=== PATIENT | male | born 1965 ===

== ENCOUNTER 2024-11-13 08:57 | Outpatient (AMB) | payer MEDICAID, SELFPAY ==
--- NOTE | 2024-11-13 09:06 | MHC.OFFVIS ---
Intake Visit Reasons: hydrocele/BPH Intake Note: New Patient presents for initial visit for hydrocele and BPH Urology Medications: tamsulosin, finasteride Blood Thinner: none PVR: 41ml's Communication Skills Instructor Required: Yes Communication Skills Instructor Services: Communication Skills Instructor Present Communication Skills Instructor Name: Briana [id number] Accompanied by: Unknown Allergies No Known Allergies Allergy (Verified 11/13/24 09:49) Medication List - Last Reconciled 11/13/24 by MONET Royal- atenolol-chlorthalidone 50-25 mg 1 tab PO DAILY atorvastatin 40 mg PO DAILY captopril 25 mg PO BID finasteride 5 mg PO DAILY ketotifen fumarate 0.025%(0.035%) 1 drp ophthalmic (eye) BID loratadine 10 mg PO DAILY PRN pantoprazole 40 mg PO QAM rosuvastatin 40 mg PO BEDTIME tamsulosin 0.4 mg PO DAILY HPI Comments Details: Caitlin is a 59-year-old Central African-speaking male patient of Dr. Austin. He has a past medical history of hypertension, GERD, hypercholesteremia, BPH, and headaches. He presents to the office today as a new patient for left-sided hydrocele as well as ongoing lower urinary tract symptoms he has been experiencing. In discussion with the patient today reports having followed up with his PCP in discussing urological issues at which time urology referral was made for further assessment evaluation. He reports a longstanding history of a hydrocele and undergoing hydrocelectomy in [facility] over 10 years ago however feels hydrocele has reoccurred in his looking to undergo further surgical intervention. He also reports noting ongoing lower urinary tract symptoms over the last 2 years and was started on finasteride and Flomax with his PCP however has since stopped taking this medication as he did not know how long he should be taking them. He reports symptoms had somewhat improved when taking these medications. He reports noting feeling of incomplete bladder emptying and weak urinary stream. In assessment of the patient today small to moderate size left-sided hydrocele noted as well as epididymal head cyst. Otherwise no open areas, lesions, and or drainage noted within the area. GIOVANNA smooth and no suspicious nodules palpated. We discussed at length potential causes of lower urinary tract symptoms patient was experiencing as well as hydrocele. We discussed further intervention to include imaging. He otherwise denies incontinence, nocturia, hematuria, dysuria, foul smelling urine, flank pain, fever, and or chills. In office urinalysis results reviewed with the patient today. PVR 41 mLs. He otherwise offers no other issues or concerns at this time. Plan An ultrasound of the kidneys, bladder, and testicles will be performed to evaluate the patient's genitourinary symptoms, particularly regarding the potential for surgical intervention for his left sided recurring hydrocele. Blood work will assess his prostate health to determine the need for Finasteride. For immediate alleviation of his urinary retention symptoms, Tamsulosin restart is recommended until further diagnostic information becomes available. The benefits and potential risks were communicated, reinforcing the necessity of these examinations. Patient was informed and verbally consented to the use of an ambient scribe for clinic note documentation during this visit. Discussion Notes I discussed the likely diagnosis of a hydrocele and feeling of incomplete bladder emptying secondary to Benign Prostatic Hyperplasia with the patient. We spoke about the importance of obtaining imaging studies to further understand the underlying causes of his symptoms. The potential treatment includes resumption or commencement of Tamsulosin for urinary symptoms, while Finasteride use would depend on blood work results as well as imaging. The patient was informed about potential surgical intervention for his hydrocele following diagnostic confirmation. Risks, benefits, and alternative management approaches were addressed, with patient consent for proceeding as discussed. [facility] Medical History Tension type headache Benign prostatic hyperplasia Hypercholesterolemia GERD (gastroesophageal reflux disease) Essential hypertension Review of Systems Const All systems reviewed & are unremarkable except as noted in HPI and below Physical Exam Const General: cooperative, comfortable, no acute distress, well developed, alert and awake Orientation/consciousness: patient oriented x3 Limitations: language barrier HEENT Head: Yes normal to inspection, Yes normocephalic and Yes atraumatic Ears: hearing grossly normal bilaterally Eyes General: appearance normal, both eyes and all related structures Neck Neck: Yes normal visual inspection and Yes trachea midline Chest Chest palpation & inspection: normal inspection of the chest Resp Effort & Inspection: normal respiratory effort and able to speak in complete sentences Cardio Rate: regular rate GI Inspection: Yes normal to inspection Other: as per HPI General: Yes no CVA tenderness Back/Spine/Pelvis Back: no CVA tenderness Skin General skin exam: no rashes or lesions noted Neuro General: patient oriented x3 Extrem General: Yes normal to inspection Psych Appearance: grossly normal and well kempt Mental Status: mental status grossly normal Speech and movement: Normal speech and movement present and Clear speech present Affect: normal affect Attitude: cooperative Thought process: Normal thought process present Thought content: Normal thought content present Insight: Fair insight present (Psych) Judgement: Fair judgement present (Psych) Office Procedures Post Void Residual Post Residual Void Post Void Residual (PVR): 41 [id number] Void Residual by ultrasound Results AMB Urinalysis, Automated UA Leukoctes 0 Roseline/uL Last Edit by Britney Samuelsyoel on 11/13/24 09:24 UA Nitrite Last Edit by Britney Samuelsyoel on 11/13/24 09:24 UA Urobilinogen 0.2 mg/dL Last Edit by Britney Samuelsyoel on 11/13/24 09:24 UA Protein 15 mg/dL Last Edit by Britney Samuelsyoel on 11/13/24 09:24 UA pH 6.0 Last Edit by Britney Samuelsyoel on 11/13/24 09:24 UA Blood 10 Giles/uL Last Edit by Britney Samuelsyoel on 11/13/24 09:24 UA Specific [place] 1.025 Last Edit by AshutoshKiromicjovan Samuelsyoel on 11/13/24 09:24 UA Ketone Last Edit by Ashutoshdomingajovan Samuelsyoel on 11/13/24 09:24 UA Bilirubin 0 mg/dL Last Edit by Ashutoshlucho Abrilyoel on 11/13/24 09:24 UA Glucose 0 mg/dL Last Edit by AshutoshKiromicjovan Abrilyoel on 11/13/24 09:24 Results Reviewed Results Reviewed: Laboratory Last Values Urine pH (Auto) 6.0 11/13/24 09:08 Specific [place] (Auto) 1.025 11/13/24 09:08 Urine Protein (Auto) 15 mg/dL 11/13/24 09:08 Glucose (UA)(Auto) 0 mg/dL 11/13/24 09:08 Urine Blood (Auto) 10 Giles/uL 11/13/24 09:08 Urine Bilirubin (Auto) 0 mg/dL 11/13/24 09:08 Urine Urobilinogen (Auto) 0.2 mg/dL 11/13/24 09:08 Leukocyte Esterase (Auto) 0 Roseline/uL 11/13/24 09:08 Assessment & Plan Assessment & Plan (1) Weak urinary stream: Code(s): R39.12 - Poor urinary stream Category: Medical (2) Feeling of incomplete bladder emptying: Code(s): R39.14 - Feeling of incomplete bladder emptying Category: Medical (3) Hydrocele: Code(s): N43.3 - Hydrocele, unspecified Category: Medical Plan In office urinalysis results reviewed the patient today; as noted above. PVR 41 mL. We discussed at length potential causes of lower urinary tract symptoms patient was experiencing as well as hydrocele. We discussed further interventions and risks and benefits of these interventions. Will obtain scrotal ultrasound for further assessment evaluation. Will obtain retroperitoneal ultrasound for further assessment evaluation. Will attempt to obtain PSA from PCP. Will restart Flomax as discussed and prescribed. Follow-up in 1-3 months with imaging and PVR; or sooner with any issues, concerns, and or questions. Orders: Orders AMB Urinalysis Automated Today Z13.9 - Encounter for screening, unspecified Urine Cytology Today Z13.9 - Encounter for screening, unspecified AMB Post Void Residual by ultrasound Today N40.0 - Benign prostatic hyperplasia without lower urinary tract symptoms US retroperitoneal comp Today N43.3 - Hydrocele, unspecified, R39.12 - Poor urinary stream, R39.14 - Feeling of incomplete bladder emptying US scrotum Today N43.3 - Hydrocele, unspecified Patient Instructions: The patient had an opportunity to ask questions regarding the treatment plan. All questions were answered. Physical exam, labs, and imaging were discussed and reviewed in detail. As well as risks, benefits, and discussion of treatment choices. No major barriers to understanding were identified. The patient expressed understanding and agreement with the above treatment plan. The patient was made aware they should contact our office by phone for worsening of their current condition, the appearance of new symptoms, or with any questions or concerns. Compliance is encouraged with any medications and follow up testing that is ordered. It is a privilege to be allowed the opportunity to participate in? your urological care.? Again, if you have any questions or concerns If you have any questions or concerns please do not hesitate to contact me. The office is [phone]. This note is constructed using voice recognition software. While every effort has been made to ensure accuracy logistics solution manager errors may have been included. Yours sincerely, BRENDA Royal Coding Level of Care Code New Pt Level 4 (49464) Diagnoses Weak urinary stream R39.12 Feeling of incomplete bladder emptying R39.14 Hydrocele N43.3 CPT Codes Post Residual Void - PVR CPT Code: 62141-Yczu Void Residual by ultrasound ([id number]) Time Spent (min) 35
== END 2024-11-13 09:50 | disposition home or self-care (01) ==
LOC: HO.HUSH 08:58
PROVIDERS: PCP Internal Medicine; Visit Provider Nurse Practitioner Family
DX: R39.12 Poor urinary stream (principal); R39.14 Feeling of incomplete bladder emptying; N43.3 Hydrocele, unspecified; Z13.9 Encounter for screening, unspecified
CPT/HCPCS: 99204

== ENCOUNTER 2024-11-13 08:57 | Outpatient (REF) | payer MEDICAID, SELFPAY ==
[2024-11-13 17:08] LABS: Urine Cytology See Pathology rpt
== END 2024-11-13 08:58 | disposition home or self-care (01) ==
LOC: HO.LNP 08:57
PROVIDERS: PCP Internal Medicine; Visit Provider Nurse Practitioner Family
DX: R39.12 Poor urinary stream (principal); R39.14 Feeling of incomplete bladder emptying; N43.3 Hydrocele, unspecified
CPT/HCPCS: 51798; 81003; 88112; 99212

== ENCOUNTER 2025-05-28 14:12 | Outpatient (REF) | payer OTHER, SELFPAY ==
--- NOTE | ~2025-05-28 | US_ITS ---
EXAMINATION: US SCROTUM CLINICAL INFORMATION: Hydrocele, history of hydrocelectomy 10 years ago. 60-year-old male.. COMPARISON: None available. TECHNIQUE: A sonogram of the scrotum was performed assessing rodriguez-scale appearance and color Doppler flow. Spectral Doppler analysis of the arterial and venous flow were performed in the testes bilaterally. FINDINGS: RIGHT: Right testicle measures 5.4 x 2.6 x 4.1 cm, volume 31 mL. No focal testicular parenchymal lesions are visualized. Spectral Doppler analysis of the arterial and venous flow is normal in the right testis. Right epididymal head is normal in size. There is a small right hydrocele. There is no varicocele. Right epididymal Doppler flow is normal. LEFT: Left testicle measures 5.0 x 2.3 x 3.9 cm, volume 24 mL. No focal testicular parenchymal lesions are visualized. Spectral Doppler analysis of the arterial and venous flow is normal in the left testis. Left epididymal head is normal in size. There is a moderate sized left hydrocele. There is no varicocele. Left epididymal Doppler flow is normal. US/US scrotum IMPRESSION: 1. Normal testicles and epididymides. 2. Small right and moderate left hydroceles. Electronically signed by: Gerald Astorga MD 05/28/2025 03:28 PM EDT
--- NOTE | ~2025-05-28 | US_ITS ---
EXAMINATION: US RETROPERITONEAL COMPLETE (RENAL) CLINICAL INFORMATION: Poor urinary stream. COMPARISON: None available. TECHNIQUE: Real-time imaging of the kidneys and bladder. FINDINGS: RIGHT KIDNEY: 12.3 x 5.0 x 5.7 cm (SAG x AP x TRV). The kidney is normal in size, contour, and echogenicity. Renal cortical thickness is normal. No calculi or focal parenchymal lesions. No hydronephrosis. LEFT KIDNEY: 11.7 x 6.2 x 3.9 cm (SAG x AP x TRV). The kidney is normal in size, contour, and echogenicity. Renal cortical thickness is normal. No calculi or focal parenchymal lesions. No hydronephrosis. BLADDER: Well distended and normal. Bilateral ureteral jets are demonstrated. Prevoid bladder volume is 430 mL. Postvoid bladder volume is 62 mL. Prostate volume is estimated at 24 mL. US/US retroperitoneal comp IMPRESSION: 1. Normal kidneys and urinary bladder. 2. Postvoid residual of 62 mL. Electronically signed by: Gerald Astorga MD 05/28/2025 03:30 PM EDT
--- OUTSIDE RECORDS SUMMARY | 2025-05-28 16:46 | XMS_ITS | Encounter Summary ---
Author Organization [facility] Address [address] [place] [address] Care Team Providers Care Air Conditioning Engineer Name Role Phone Child, Jarrell SOLORZANO Primary Care Provider [phone] Encounter Details Date Type Department Care Team ([facility] Contact Info) Description 04/25/2025 Telephone Gastroenterology - [place] [address] [place] [id number] Pola Rdz MD [address] [place] [address] Social History Tobacco Use Types Packs/Day Years Used Date Smoking Tobacco: Never Assessed Interpersonal Safety Answer Date Record ed Physical Abuse Unrecognized value 04/26/2025 Verbal Abuse Unrecognized value 04/26/2025 Sex and Gender Information Value Date Recorded Sex Assigned at Male 11/03/2024 3:51 PM EDT Legal Sex Male 8:42 PM EST Gender Identity Male 11/03/2024 3:51 PM EDT Sexual Orientation Straight 11/03/2024 3: 51 PM EDT documented as of this encounter Progress Notes * Enedelia Cantu - 04/25/2025 11:18 AM EDT PT JUST GOT [employer] INSURANCE OF THIS MONTH, PT SCHEDULED FOR PROCEDURE ON 04/26 documented in this encounter Plan of Treatment Upcoming Encounters Date Type Department Care Team (Late st Contact Info) Description 10/12/2025 3:00 PM EST Office Visit Gastroenterology - [place] [address] [facility] [address] [place] [phone] Charlotte Crowe, HASEEB [address] [facility] [address] [place] [address] documented as of this encounter Visit Diagnoses Not on filedocumented in this encounter Care Teams Air Conditioning Engineer Relationship Specialty Start Date End Date Child, RASHAD Vieyra [address] [place] [address] 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
--- OUTSIDE RECORDS SUMMARY | 2025-05-28 16:46 | XMS_ITS | Clinical Summary ---
Author Organization [facility] Address [address] [place] [address] Care Team Providers Care Blunger Name Role Phone Camilo Austin MD Primary Care Provider Source Comments PLEASE NOTE, if this patient is a minor, it may be UNLAWFUL to discuss sensitive information that is contained in these records (such as FAMILY PLANNING, MENTAL HEALTH or SUBSTANCE ABUSE) with the minor patient's parent or other person without the patient's specific authorization.[facility] Allergies No known active allergies Medications acetaminophen (TYLENOL) 500 mg tablet Take 1 Tablet by mouth every 6 (six) hours as needed for pain 30 Tablet 1 4 Active pantoprazole (PROTONIX) 40 mg EC tablet Take 1 Tablet by mouth every morning before breakfast 90 Tablet 1 4 Active captopriL (CAPOTEN) 25 mg tablet Take 1 Tablet by mouth 2 (two) times daily 180 Tablet 1 4 Active atenoloL-chlorth alidone (TENORETIC) 50-25 mg per tablet Take 1 Tablet by mouth once daily 90 Tablet 1 4 Active rosuvastatin (CRESTOR) 40 mg tablet Take 1 Tablet by mouth nightly at bedtime 90 Tablet 1 4 Active atorvastatin (LIPITOR) 40 mg tablet TAKE 1 TABLET BY MOUTH EVERY DAY 90 Tablet 1 4 Active ketotifen (ZADITOR) 0.025 % (0.035 %) ophthalmic solutionIndicati ons:Itch of left eye,Discomfort of left eye Place 1 Drop into the left eye 2 (two) times daily 10 mL 2 5 Active loratadine (CLARITIN) 10 mg tabletIndication s:Itch of left eye,Discomfort of left eye Take 1 Tablet by mouth once daily as needed for allergies 90 Tablet 5 Active tamsulosin (FLOMAX) 0.4 mg 24 hr capsuleIndicatio ns:Benign prostatic hyperplasia with weak urinary stream Take 1 Capsule by mouth once daily 90 Capsule 3 5 Active finasteride (PROSCAR) 5 mg tabletIndication s:Benign prostatic hyperplasia with weak urinary stream Take 1 Tablet by mouth once daily 90 Tablet 3 5 Active Active Problems Problem Noted Date Diagnosed Date Tension-type headaches 03/24/2024 Benign prostatic hyperplasia with weak urinary s tream 12/17/2023 Hypercholesterolemia 04/02/2023 Essential hypertension 11/13/2022 GERD (gastroesophageal reflux disease) 3 Family History Medical History Relation Name Comments Colon Cancer Father Heart Problems Mother Stroke Mother Relation Name Status Comments Father Mother Social History Tobacco Use Types Packs/Day Years Used Date Smoking Tobacco: Never Smokeless Tobacco: Never Tobacco Cessation:Counseling Given: Not Answered Alcohol Use Standard Drinks/Week Comments Never 0 (1 standard drink = 0.6 oz pur e alcohol) Social Connections Answer Date Recorded Connectedness 0 05/05/2024 Financial Resource Strain Answer Date R ecorded Financial Resource Strain 0 2021 Stress Answer Date Recorded Stress 0 07/24/2022 Physical Activity Answer Date Recorded Physical Activity 0 07/24/2022 Food Insecurity Answer Date Recorded Food 0 05/18/2024 Transportation Needs Answer Date Record ed Transportation 0 07/24/2022 Housing Stability Answer Date Recorded Housing 0 07/24/2022 Safety and Environment Answer Date Ari rded Safety 0 07/24/2022 Utilities Answer Date Recorded Utilities 0 07/24/2022 Employment Answer Date Recorded Stress 0 05/05/2024 Sex and Gender Information Value Date Recorded Sex Assigned at Male 11/13/2022 8:32 AM PDT Legal Sex Male 1:49 PM PST Gender Identity Male 11/13/2022 8:32 AM PDT Sexual Orientation Straight 11/13/2022 8: 32 AM PDT Last Filed Vital Signs Vital Sign Reading Time Taken Comments Blood Pressure 175/99 09/15/2024 9:01 AM EST Pulse 69 09/15/2024 9:01 AM EST Temperature 36.6 C (97.9 F) 09/15/2024 9:01 AM EST Respiratory Rate 16 09/15/2024 9:01 AM EST Oxygen Saturation 98% 05/14/2023 9:11 AM EDT Inhaled Oxygen Concentration - - Weight 78.5 kg (173 lb) 09/15/2024 9:01 AM EST Height 163 cm (5' 4.17 ) 09/15/2024 9:01 AM EST Body Mass Index 29.54 09/15/2024 9:01 AM EST Plan of Treatment Health Maintenance Due Date Last Done Comments Imm-DTaP/Tdap/Td (1 - Tdap) 1982 CT Colonography 02/25/2008 FIT/gFOBT 02/25/2008 Fecal DNA 02/25/2008 Flexible Sigmoidoscopy 02/25/2008 Imm-Pneumococcal 50+ (1 of 1 - PCV) 2013 Imm-Zoster, Recombinant (1 of 2) 2013 Alcohol and Drug Screen 08/23/2024 03/24/20, 11/13/2022, 11/13/2022 Depression Annual Screen 08/23/2024 03/24/2024, 10/22 Annual Wellness (Adult): Ind icated (All Coverage) 12/16/2024 12/17/2023, 11/13/2022 Anxiety Screening 03/24/2025 03/24/2024 Lipid Screening 03/24/2025 03/24/2024, 08/09/2023, 11/13/2022 [id number] ( - season) 2025 Imm-Influenza (#1) 2025 Tobacco Screening 09/15/2025 09/15/2024 Diabetes Screening 11/13/2025 11/13/2022, 11/13/2022 Colonoscopy 05/26/2034 05/26/2024, 05/26/2024 Colorectal Cancer Screening 05/26/2034 HIV Screening Completed 11/13/2022 Hepatitis C Screening Completed 11/13/2022 Procedures Procedure Name Priority Date/Time Associated Diagnosis Comments UPPER GI ENDOSCOPY (EGD) SCANNED DOCUMENT 04/26/2025 3:00 AM EDT IMAGING SCANNED DOCUMENT 04/03/2025 3:00 AM EDT HISTORIC COLONOSCOPY 05/26/2024 3:00 AM EDT LIPIDS W RFLX TO DIRECT LDL Routine 03/24/2024 3:41 PM EDT Hypercholesterolemia HIV 1/2 AG & AB W/RFLX (4TH GEN) Routine 11/13/2022 11:13 AM EDT Health maintenance examination Screening for viral disease HEPATITIS C AB W/RFLX HCV RNA, QT, RT PCR Routine 11/13/2022 11:13 AM EDT Health maintenance examination Screening for viral disease COMPREHENSIVE METABOLIC PANEL Routine 11/13/2022 11:13 AM EDT Health maintenance examination Essential (primary) hypertension from Last 3 Months or Most Recently Relevant to Health Maintenance Results * UPPER GI ENDOSCOPY (EGD) SCANNED DOCUMENT (04/26/2025 3:00 AM EDT) 04/26/2025 3:[address] [facility] PA-C SCAN PROCEDURES Final Result * IMAGING SCANNED DOCUMENT (04/03/2025 3:00 AM EDT) 04/03/2025 3:00 AM EDT [facility] PA-C SCAN IMAGING Final Result * HISTORIC COLONOSCOPY (05/26/2024 3:00 AM EDT) 05/26/2024 3:00 AM EDT Camilo Austin MD PROCEDURES Final Result * (ABNORMAL) LIPIDS W RFLX TO DIRECT LDL (03/24/2024 3:41 PM EDT) CHOLESTEROL, TOTAL 244(H) <200 mg/dL [facility] HDL CHOLESTEROL 48 > OR = 40 mg/dL [facility] TRIGLYCERIDES 575(H) <150 mg/dL [facility] Comment: If a non-fasting specimen was collected, consider repeat triglyceride testing on a fasting specimen if clinically indicated. Nikhil et al. J. of Clin. Lipidol. 2015;9:129-169. There is increased risk of pancreatitis when the triglyceride concentration is very high (> or = 500 mg/dL, especially if > or = 1000 mg/dL). Nikihl et al. J. of Clin. Lipidol. 2015;9:129-169. LDL-CHOLESTEROL See Note [facility] [employer] Comment: LDL cholesterol not calculated. Triglyceride levels greater than 400 mg/dL invalidate calculated LDL results. Reference range: <100 Desirable range <100 mg/dL for primary prevention; <70 mg/dL for patients with CHD or diabetic patients with > or = 2 CHD risk factors. LDL-C is now calculated using the Peter-Kadi calculation, which is a validated novel method providing better accuracy than the Friedewald equation in the estimation of LDL-C. Peter SS et al. BRENDEN. 2013;310(19): 8262-4486 (http://education.WebPT/faq/NKO015) CHOL/HDLC RATIO 5.1(H) <5.0 (calc) [facility] NON-HDL CHOLESTEROL 196(H) <130 mg/dL (calc) [facility] Comment: For patients with diabetes plus 1 major ASCVD risk factor, treating to a non-HDL-C goal of <100 mg/dL (LDL-C of <70 mg/dL) is considered a therapeutic option. Blood Blood / Unknown 03/24/2024 3 :41 PM EDT 03/24/2024 3:42 PM EDT Narrative [facility] - 03/27/2024 10:56 AM EDT FASTING:NO us Camilo Austin MD LAB - BLOOD DRAW Final Resul t [facility] [address] [place] [id number], [facility] [address] [place] [phone] * HEPATITIS C AB W/RFLX HCV RNA, QT, RT PCR (11/13/2022 11:13 AM EDT) HEPATITIS C ANTIBODY NON-REACT MOLLY NON-REACT MOLLY [facility] SIGNAL TO CUT-OFF 0.05 <1.00 [facility] Comment: HCV antibody was non-reactive. There is no laboratory evidence of HCV infection. In most cases, no further action is required. However, if recent HCV exposure is suspected, a test for HCV RNA (test code 02967) is suggested. For additional information please refer to http://seedtag.Rakuten/faq/EYW90c3 (This link is being provided for informational/ educational purposes only.) Blood Blood / Unknown 11/13/2022 1 1:13 AM EDT 11/13/2022 11:14 AM EDT Narrative [facility] - 11/18/2022 2:12 PM EDT FASTING:NO Brissa Ford NP LAB - BLOOD DRAW Edited Result - Final [facility] [address] [place] [id number], [facility] [address] [phone] * HIV 1/2 AG & AB W/RFLX (4TH GEN) (11/13/2022 11:13 AM EDT) HIV AG/AB, 4TH GEN NON-REAC TIVE NON-REAC TIVE [facility] Comment: HIV-1 antigen and HIV-1/HIV-2 antibodies were not detected. There is no laboratory evidence of HIV infection. PLEASE NOTE: This information has been disclosed to you from records whose confidentiality may be protected by state law. If your state requires such protection, then the state law prohibits you from making any further disclosure of the information without the specific written consent of the person to whom it pertains, or as otherwise permitted by law. A general authorization for the release of medical or other information is NOT sufficient for this purpose. For additional information please refer to http://seedtag.Global New Media.Medigo/faq/LXB021 (This link is being provided for informational/ educational purposes only.) The performance of this assay has not been clinically validated in patients less than 2 years old. Blood Blood / Unknown 11/13/2022 1 1:13 AM EDT 11/13/2022 11:14 AM EDT Narrative [facility] [facility] - 11/18/2022 2:12 PM EDT FASTING:NO Brissa Ford NP LAB - BLOOD DRAW Final Result [facility] [address] [address], [facility] [address] [place] [address] * (ABNORMAL) CMP (11/13/2022 11:13 AM EDT) GLUCOSE 97 65 - 139 mg/dL [facility] Comment: Non-fasting reference interval UREA NITROGEN (BUN) 19 7 - 25 mg/dL [facility] CREATININE (blood) 0.91 0.70 - 1.30 mg/dL [facility] EGFR 97 > OR = 60 mL/min/1 .73m2 [facility] Comment: The eGFR is based on the CKD-EPI 2020 equation. To calculate the new eGFR from a previous Creatinine or Cystatin C result, go to https://www.kidney.org/professionals/ kdoqi/gfr%5Fcalculator BUN/CREATININE RATIO NOT APPLICABLE 6 - 22 [facility] SODIUM 139 135 - 146 mmol/L [facility] POTASSIUM 4.3 3.5 - 5.3 mmol/L [facility] CHLORIDE 104 98 - 110 mmol/L [facility] CARBON DIOXIDE 28 20 - 32 mmol/L [facility] CALCIUM 11.6(H) 8.6 - 10.3 mg/dL [facility] PROTEIN, TOTAL 7.2 6.1 - 8.1 g/dL [facility] ALBUMIN 4.8 3.6 - 5.1 g/dL [facility] GLOBULIN 2.4 1.9 - 3.7 g/dL (calc) [facility] ALBUMIN/GLOBUL IN RATIO 2.0 1.0 - 2.5 (calc) [facility] BILIRUBIN, TOTAL 0.9 0.2 - 1.2 mg/dL [facility] ALKALINE PHOSPHATASE 76 35 - 144 U/L [facility] AST 22 10 - 35 U/L [facility] ALT 33 9 - 46 U/L [facility] Blood Blood / Unknown 11/13/2022 1 1:13 AM EDT 11/13/2022 11:14 AM EDT Narrative [facility] - 11/18/2022 2:12 PM EDT FASTING:NO Brissa Ford LOCK AND DAM OPERATOR LAB - BLOOD DRAW Edited Result - Final [facility] [address] [address], [facility] [address] [place] [address] from Last 3 Months or Most Recently Relevant to Health Maintenance Insurance [id number] Care Teams Blunger Relationship Specialty Start Date End Date Camilo Austin MD [address] [place] [address] PCP - General Internal Medicine 05/03/23
--- OUTSIDE RECORDS SUMMARY | 2025-05-28 16:46 | XMS_ITS | Clinical Summary ---
Author Organization [facility] Address [address] [place] [address] Care Team Providers Care Kier Operator Name Role Phone ChildJarrell Primary Care Provider [phone] Allergies No known active allergies Medications atenoloL-chlortha lidone (TENORETIC) 50-25 mg per tablet Take 1 tablet by mouth 1 (one) time each day. Active captopriL (CAPOTEN) 25 mg tablet Take 1 tablet (25 mg total) by mouth 3 (three) times a day. Active pantoprazole (PROTONIX) 40 mg EC tablet Take 1 tablet (40 mg total) by mouth 1 (one) time each day. Active rosuvastatin (CRESTOR) 40 mg tablet 1 (one) time each day. 4 Active acetaminophen (TYLENOL) 500 mg tablet Take 1 tablet (500 mg total) by mouth every 6 hours as needed. 4 Active atorvastatin (LIPITOR) 40 mg tablet Take 1 tablet (40 mg total) by mouth daily. 4 Active pantoprazole (PROTONIX) 40 mg EC tablet Take 1 tablet (40 mg total) by mouth 2 (two) times a day. Take on empty stomach, wait 30 mins and then eat to activate the medication- before breakfast and supper 60 each 11 5 Active famotidine (Pepcid) 20 mg tablet Take 1 tablet (20 mg total) by mouth 2 (two) times a day if needed for heartburn. Take as needed especially at bedtime 60 each 11 5 026 Active Additional Information Patient not taking.Reported on 04/26/2025 valsartan (DIOVAN) 160 mg tablet Take 1 tablet (160 mg total) by mouth 1 (one) time each day. Takes 1/2 pill / day . Pt unsure of dose Active bismuth subsalicylate 525 mg/15 mL suspension Take 15 mL by mouth 4 (four) times a day. 840 mL Active metroNIDAZOLE (FLAGYL) 250 mg tablet Take 1 tablet (250 mg total) by mouth 4 (four) times a day for 14 days. Do not use mouth wash or consume alcohol until 48 hours after last dose 56 tablet 5 025 Active tetracycline (ACHROMYCIN,SUMYC IN) 500 mg capsule Take 1 capsule (500 mg total) by mouth 4 (four) times a day for 14 days. 56 capsule 5 025 Active Encounters Date Type Department Care Team Description 05/27/2025 Results Follow-Up Gastroenterology - [place] 175 [facility] [address] [phone] Pola Rdz MD 04/26/2025 2:04 PM EDT Anesthesia Event [facility] [address] [place] [address] Nestor Granger MD 04/26/2025 12:02 PM EDT - 04/26/2025 11:59 PM EDT Hospital Encounter [facility] [address] [place] [address] Pola Rdz MD Steele, Matthew G, FRONT DESK TEAM MEMBER Dyspepsia; Epigastric pain Discharge Disposition: Home or Self Care 04/25/2025 Telephone Gastroenterology - [place] 175 [facility] [address] [phone] Pola Rdz MD 04/03/2025 9:58 AM EDT - 04/03/2025 11:59 PM EDT Hospital Encounter [facility] [address] [place] [address] Dyspepsia Discharge Disposition: Home or Self Care from Last 3 Months Surgical History Surgery Date Site/Laterality Comments COLONOSCOPY N/A Medical History Medical History Date Comments Hypertension GERD (gastroesophageal reflux disease) Family History Relation Name Status Comments Father colon cancer Social History Tobacco Use Types Packs/Day Years Used Date Smoking Tobacco: Never Smokeless Tobacco: Never Tobacco Cessation:Counseling Given: Not Answered Alcohol Use Standard Drinks/Week Comments Not Currently 0 (1 standard drink = 0.6 oz pur e alcohol) Interpersonal Safety Answer Date Record ed Physical Abuse Unrecognized value 04/26/2025 Verbal Abuse Unrecognized value 04/26/2025 Sex and Gender Information Value Date Recorded Sex Assigned at Male 11/03/2024 3:51 PM EDT Legal Sex Male 8:42 PM EST Gender Identity Male 11/03/2024 3:51 PM EDT Sexual Orientation Straight 11/03/2024 3: 51 PM EDT Obstetrics History Last Filed Vital Signs Vital Sign Reading Time Taken Comments Blood Pressure 163/99 04/26/2025 2:46 PM EDT pt aware to take bp meds due today as prescribed Pulse 71 04/26/2025 2:46 PM EDT Temperature 36.1 C (97 F) 04/26/2025 2:02 PM EDT Respiratory Rate 15 04/26/2025 2:46 PM EDT Oxygen Saturation 98% 04/26/2025 2:4 6 PM EDT Inhaled Oxygen Concentration - - Weight 76 kg (167 lb 8.8 oz) 04/26/2025 2:02 PM EDT Height 168 cm (5' 6.14 ) 04/26/2025 2:0 2 PM EDT Body Mass Index 26.93 04/26/2025 2:02 PM EDT Plan of Treatment Upcoming Encounters Date Type Department Care Team (Late st Contact Info) Description 10/12/2025 3:00 PM EST Office Visit Gastroenterology - [place] 175 [facility] 175 [facility] [address] [place] [address] Charlotte Crowe NP 175 [facility] [address] [place] [address] Health Maintenance Due Date Last Done Comments DTaP,Tdap,and Td Vaccines (1 - Tdap) 1982 Pneumococcal Vaccine: 50+ Ye ars (1 of 1 - PCV) 2013 Zoster Vaccines (1 of 2) 2013 HIV Screening 09/17/2023 Social Influencers of Health Screening 09/17/2023 Depression Screening 08/23/2024 Hypertension/CHF/CAD Annual BMP Blood Test 10/13/2024 11/13/2022 COVID-19 Vaccine (1 - 2023-2 5 season) 2025 Influenza Vaccine (#1) 2025 Cholesterol Screening (Lipid Panel) 03/24/2029 03/24/2024 Colorectal Cancer Screening: Colonoscopy 05/26/2029 05/26/2024 RSV Immunization Adult Patie nts (1 - 1-dose 75+ series) 2038 Hepatitis C Screening Completed 11/13/2022 HIB Vaccines Aged Out No longer eligi ble based on patient's age to complete this topic HPV Vaccines Aged Out No longer eligi ble based on patient's age to complete this topic Hepatitis A Vaccines Aged Out No long er eligible based on patient's age to complete this topic Hepatitis B Vaccines Aged Out No long er eligible based on patient's age to complete this topic IPV Vaccines Aged Out No longer eligi ble based on patient's age to complete this topic MMR Vaccines Aged Out No longer eligi ble based on patient's age to complete this topic Meningococcal ACWY Vaccine Aged Out N o longer eligible based on patient's age to complete this topic Meningococcal B Vaccine Aged Out No l onger eligible based on patient's age to complete this topic RSV Immunization Patients Un ngozi 20 months Aged Out No longer eligible b ased on patient's age to complete this topic Varicella Vaccines Aged Out No longer eligible based on patient's age to complete this topic Procedures Procedure Name Priority Date/Time Associated Diagnosis Comments EGD Routine 04/26/2025 2:25 PM EDT Dyspepsia Epigastric pain TISSUE EXAM Routine 04/26/2025 2:10 PM EDT Dyspepsia Epigastric pain XR UGI W AIR CONTRAST Routine 04/03/2025 10:34 AM EDT Dyspepsia HM COLONOSCOPY Routine 05/26/2024 from Last 3 Months or Most Recently Relevant to Health Maintenance Results * EGD Anesthesia - MAC; [facility] (04/26/2025 2:25 PM EDT) Anatomical Region Laterality Modality Endoscopy 04/26/2025 2:04 PM EDT Impressions 04/26/2025 2:28 PM EDT - Normal examined duodenum. - Gastritis. Biopsied. 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 Complete removal was accomplished. Clips (MR conditional) were placed. 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 - Small hiatal hernia. - LA Grade B reflux esophagitis with no bleeding. - GERD, as evident by free flow of gastric contents into the esophagus. - Mucosal resection was performed. Resection and retrieval were complete. Recommendation: - Discharge patient to home. - Await pathology results. - Follow an antireflux regimen. - Use a proton pump inhibitor PO daily. Narrative 04/26/2025 2:28 PM EDT [facility] Patient Name: Caitlin Ortiz Procedure Date: 04/26/2025 2:04 PM Date of : 1965 Age: 60 Gender: Male Note Status: Finalized Attending MD: Pola Rdz MD, Procedure Date No Time: 04/26/2025 Procedure: Upper GI endoscopy Indications: Esophageal reflux symptoms that persist despite appropriate therapy, New-onset upper abdominal symptoms in patient older than 50 years Providers: Pola Rdz MD Referring MD: Pola Rdz MD Medicines: Monitored Anesthesia Care Complications: No immediate complications. Estimated blood loss: Minimal. Estimated Blood Loss: Estimated blood loss was minimal. Procedure: Pre-Anesthesia Assessment: - Prior to the procedure, a History and Physical was performed, and patient medications and allergies were reviewed. The patient is competent. The risks and benefits of the procedure and the sedation options and risks were discussed with the patient. All questions were answered and informed consent was obtained. Patient identification and proposed procedure were verified by the physician, the nurse, the real estate professor and the batch room technician in the pre-procedure area in the endoscopy suite. Mental Status Examination: alert and oriented. Airway Examination: normal oropharyngeal airway and neck mobility. Respiratory Examination: clear to auscultation. CV Examination: normal. Prophylactic Antibiotics: The patient does not require prophylactic antibiotics. Prior Anticoagulants: The patient has taken no anticoagulant or antiplatelet agents. ASA Grade Assessment: III - A patient with severe systemic disease. After reviewing the risks and benefits, the patient was deemed in satisfactory condition to undergo the procedure. The anesthesia plan was to use monitored anesthesia care (MAC). Immediately prior to administration of medications, the patient was re-assessed for adequacy to receive sedatives. The heart rate, respiratory rate, oxygen saturations, blood pressure, adequacy of pulmonary ventilation, and response to care were monitored throughout the procedure. The physical status of the patient was re-assessed after the procedure. After obtaining informed consent, the endoscope was passed under direct vision. Throughout the procedure, the patient's blood pressure, pulse, and oxygen saturations were monitored continuously. The Endoscope was introduced through the mouth, and advanced to the second part of duodenum. The upper GI endoscopy was accomplished without difficulty. The patient tolerated the procedure well. Findings: The examined duodenum was normal. Diffuse moderate inflammation characterized by congestion (edema) and erythema was found in the gastric body and in the gastric antrum. Biopsies were taken with a cold forceps for histology. Estimated blood loss was minimal. A small, submucosal mass with no bleeding and no stigmata of recent bleeding was found in the gastric antrum. Preparations were made for mucosal resection. Band ligator and snare mucosal resection was performed. Resection and retrieval were complete. To prevent bleeding after the polypectomy, two hemostatic clips were successfully placed (MR conditional). 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 There was no bleeding at the end of the procedure. Estimated blood loss was minimal. A small hiatal hernia was present. LA Grade B (one or more mucosal breaks greater than 5 mm, not extending between the tops of two mucosal folds) esophagitis with no bleeding was found at the gastroesophageal junction. Gastroesophageal reflux is evident by free flow of gastric contents in the lower third of the esophagus. Procedure Code(s): --- Professional --- 47424, Esophagogastroduodenoscopy, flexible, transoral; with endoscopic mucosal resection 27209, 59, Esophagogastroduodenoscopy, flexible, transoral; with biopsy, single or multiple Diagnosis Code(s): --- Professional --- K29.70, Gastritis, unspecified, without bleeding K44.9, Diaphragmatic hernia without obstruction or gangrene K21.00, Gastro-esophageal reflux disease with esophagitis, without bleeding R19.8, Other specified symptoms and signs involving the digestive system and abdomen CPT copyright 2020 [employer]. All rights reserved. The codes documented in this report are preliminary and upon lan specialist review may be revised to meet current compliance requirements. Pola Rdz MD 04/26/2025 2:28:29 PM This report has been signed electronically.Pola Rdz MD Number of Addenda: 0 Note Initiated On: 04/26/2025 2:04 PM Scope In: Scope Out: Endoscopy Department at [facility] - [address] [place] [id number] Procedure Note Pola Rdz MD - 04/26/2025 [facility] Patient Name: Caitlin Ortiz Procedure Date: 04/26/2025 2:04 PM Date of : 1965 Age: 60 Gender: Male Note Status: Finalized Attending MD: Pola Rdz MD, Procedure Date No Time: 04/26/2025 Procedure: Upper GI endoscopy Indications: Esophageal reflux symptoms that persist despite appropriate therapy, New-onset upper abdominal symptoms in patient older than 50 years Providers: Pola Rdz MD Referring MD: Pola Rdz MD Medicines: Monitored Anesthesia Care Complications: No immediate complications. Estimated blood loss: Minimal. Estimated Blood Loss: Estimated blood loss was minimal. Procedure: Pre-Anesthesia Assessment: - Prior to the procedure, a History and Physicalwas performed, and patient medications and allergieswere reviewed. The patient is competent. The risks and benefits of the procedure and the sedation optionsand risks were discussed with the patient. Allquestions were answered and informed consent was obtained. Patient identification and proposed procedure were verified by the physician, the nurse, theanesthetist and the batch room technician in the pre-procedure area in the endoscopy suite. Mental Status Examination: alertand oriented. Airway Examination: normal oropharyngeal airway and neck mobility. Respiratory Examination: clear to auscultation. CV Examination: normal. Prophylactic Antibiotics: The patient does notrequire prophylactic antibiotics. Prior Anticoagulants: The patient has taken no anticoagulant or antiplatelet agents. ASA Grade Assessment: III - A patient with severe systemic disease. After reviewing the risksand benefits, the patient was deemed in satisfactory condition to undergo the procedure. The anesthesia plan was to use monitored anesthesia care (MAC). Immediately prior to administration of medications, the patient was re-assessed for adequacy to receive sedatives. The heart rate, respiratory rate, oxygen saturations, blood pressure, adequacy of pulmonary ventilation, and response to care were monitored throughout the procedure. The physical status ofthe patient was re-assessed after the procedure. After obtaining informed consent, the endoscope was passed under direct vision. Throughout theprocedure, the patient's blood pressure, pulse, and oxygen saturations were monitored continuously. TheEndoscope was introduced through the mouth, and advanced tothe second part of duodenum. The upper GI endoscopy was accomplished without difficulty. The patienttolerated the procedure well. Findings: The examined duodenum was normal. Diffuse moderate inflammation characterized by congestion (edema) and erythema was found in the gastric body and in the gastric antrum. Biopsieswere taken with a cold forceps for histology. Estimated blood loss was minimal. A small, submucosal mass with no bleeding and no stigmata of recent bleeding was found in thegastric antrum. Preparations were made for mucosalresection. Band ligator and snare mucosal resection was performed. 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 There was nobleeding at the end of the procedure. Estimated blood losswas minimal. A small hiatal hernia was present. LA Grade B (one or more mucosal breaks greater than5 mm, not extending between the tops of two mucosal folds) esophagitis with no bleeding was found atthe gastroesophageal junction. Gastroesophageal reflux is evident by free flow of gastric contents in the lower third of theesophagus. Procedure Code(s): --- Professional --- 17479, Esophagogastroduodenoscopy, flexible, transoral; with endoscopic mucosal resection 91829, 59, Esophagogastroduodenoscopy, flexible, transoral; with biopsy, single or multiple Diagnosis Code(s): --- Professional --- K29.70, Gastritis, unspecified, without bleeding K44.9, Diaphragmatic hernia without obstruction or gangrene K21.00, Gastro-esophageal reflux disease with esophagitis, without bleeding R19.8, Other specified symptoms and signs involving the digestive system and abdomen CPT copyright 2020 [employer]. All rights reserved. The codes documented in this report are preliminary and upon lan specialist reviewmay be revised to meet current compliance requirements. Pola Rdz MD 04/26/2025 2:28:29 PM This report has been signed electronically.Pola Rdz MD Number of Addenda: 0 Note Initiated On: 04/26/2025 2:04 PM Scope In: Scope Out: Endoscopy Department at [facility] - [address] [place] [id number] IMPRESSION: - Normal examined duodenum. - Gastritis. Biopsied. 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 Complete removal was accomplished. Clips (MR conditional) were placed. 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 - Small hiatal hernia. - LA Grade B reflux esophagitis with no bleeding. - GERD, as evident by free flow of gastric contents into the esophagus. - Mucosal resection was performed. Resection and retrieval were complete. Recommendation: - Discharge patient to home. - Await pathology results. - Follow an antireflux regimen. - Use a proton pump inhibitor PO daily. us Pola Rdz MD GI~PROCEDURE ORDERABLES Fin al Result * Tissue exam (04/26/2025 2:10 PM EDT) Addendum Parts A-B: Immunohistochemistry: Helicobacter pylori: negative. 12:44 PM EDT [facility] Addendum electronically signed by Maeve Lowe MD on 04/30/2025 at 12:44 PM Final Diagnosis A. Stomach, biopsies: - Gastric antral mucosa with mild chronic gastritis and intestinal metaplasia. - Gastric oxyntic mucosa with no specific pathologic changes. B. Stomach, gastric submucosal nodule: - Gastric antral mucosa with mild chronic gastritis, intestinal metaplasia, and a submucosal lipoma. - Negative for dysplasia. Note: Immunostain for Helicobacter pylori will be performed to rule out Helicobacter pylori infection in the setting of chronic gastritis as Helicobacter pylori organisms are not morphologically apparent on H&E stained slide. 12:44 PM EDT [facility] Gross Description A. Stomach, biopsies: Labeled stomach biopsies . Received in formalin are three irregular knox mucosal tissue fragments, ranging from 0.1 cm to 0.5 cm in greatest dimension, which are wrapped in paper and submitted in toto in one cassette, three pieces, multiple levels on one slide. B. Stomach, gastric submucosal nodule: Labeled stomach gastric . Received in formalin is a 1.3 x 0.9 x 0.6 cm pink-red mucosal polyp. The resection margin is inked blue. The polyp is trisected, wrapped in paper, and entirely submitted in one cassette, three pieces, multiple levels on one slide. HUAN 12:44 PM EDT [facility] Disclaimer NOTE: The immunohistochemical tests and in situ hybridization tests were developed and their performance characteristics were determined by [facility]. They have not been cleared or approved by the U.S. Food and Drug Administration. The FDA has determined that such clearance or approval is not necessary. These tests are used for clinical purposes. They should not be regarded as investigational or for research. This laboratory is certified under the Clinical Laboratory Improvement Amendments of 1988 (CLIA) as qualified to perform high complexity clinical laboratory testing. (controls appropriate) Unless otherwise specified, all tissue is 10% NB formalin fixed and paraffin embedded. 12:44 PM EDT [facility] Tissue Stomach structure / Unknown 04/26/2025 2:10 PM EDT 04/26/2025 3:18 PM EDT Tissue specimen (specimen) Stomach structure / Unknown 04/26/2025 2:17 PM EDT 04/26/2025 3:18 PM EDT us Pola Rdz MD LAB PATHOLOGY ORDERABLES Ed ited Result - Final [facility] [address] [place] [address], * XR UGI w Air Contrast (04/03/2025 10:34 AM EDT) Anatomical Region Laterality Modality Body Radiographic Gracie ging 04/03/2025 2:06 PM EDT Impressions 04/03/2025 3:31 PM EDT Small, sliding, axial hiatal hernia without visualized gastroesophageal reflux, otherwise unremarkable double contrast upper GI exam. Clips in the left midabdomen of uncertain significance. The exact location and type of surgery is not known -------- FINAL REPORT -------- Dictated By: Trupti Martin Dictated Date: 04/03/2025 14:06 ET Assigned Physician: Sudeep Conroy Reviewed and Electronically Signed By: Sudeep Conroy Signed Date: 04/03/2025 15:31 ET Workstation ID: [id number] Transcribed By: Self Edit Transcribed Date: 04/03/2025 14:12 ET Resident/PA/WILDLIFE REMOVAL SPECIALIST: Trupti Martin Narrative 04/03/2025 3:31 PM EDT FINDINGS: Double contrast UGI performed. COMPARISON: None. HISTORY: Patient is a 60-year-old male with history of dyspepsia, generalized abdominal discomfort. PLANNING AND ANALYSIS MANAGER radiographs: Furniture Upholsterer AP radiograph of the abdomen obtained. Bowel gas pattern is nonobstructive. Visualized lung bases appear clear. There is a moderate stool burden. Surgical misty/clips are noted to the left upper quadrant. FINDINGS: Effervescent crystals were administered orally. Thick and thin barium was then administered orally under fluoroscopic control. Esophagus: Normal distensibility, motility and mucosal pattern. There is no evidence of obstruction. There is a small, sliding, axial hiatal hernia. Stomach: Normal distensibility and motility. Prompt passage of contrast from the stomach into the duodenal bulb and sweep. No gastric mass or ulceration. Incidental small diverticula of the duodenum. Visualization of proximal small bowel is otherwise within normal limits. Gastroesophageal reflux: Not visualized Air Kerma: 21.26 mGy Procedure Note Sudeep Conroy MD - 04/03/2025 FINDINGS: Double contrast UGI performed. COMPARISON: None. HISTORY: Patient is a 60-year-old male with history of dyspepsia,generalized abdominal discomfort. PLANNING AND ANALYSIS MANAGER radiographs: Furniture Upholsterer AP radiograph of the abdomen obtained. Bowel gaspattern is nonobstructive. Visualized lung bases appear clear. There is amoderate stool burden. Surgical misty/clips are noted to the left upperquadrant. FINDINGS: Effervescent crystals were administered orally. Thick and thinbarium was then administered orally under fluoroscopic control. Esophagus: Normal distensibility, motility and mucosal pattern. There isno evidence of obstruction. There is a small, sliding, axial hiatalhernia. Stomach: Normal distensibility and motility. Prompt passage of contrastfrom the stomach into the duodenal bulb and sweep. No gastric mass orulceration. Incidental small diverticula of the duodenum. Visualization ofproximal small bowel is otherwise within normal limits. Gastroesophageal reflux: Not visualized Air Kerma: 21.26 mGy IMPRESSION: Small, sliding, axial hiatal hernia without visualized gastroesophagealreflux, otherwise unremarkable double contrast upper GI exam. Clips in the left midabdomen of uncertain significance. The exact locationand type of surgery is not known -------- FINAL REPORT -------- Dictated By: Trupti Martin Dictated Date: 04/03/2025 14:06 ET Assigned Physician: Sudeep Conroy Reviewed and Electronically Signed By: Sudeep Conroy Signed Date: 04/03/2025 15:31 ET Workstation ID: [id number] Transcribed By: Self Edit Transcribed Date: 04/03/2025 14:12 ET Resident/PA/WILDLIFE REMOVAL SPECIALIST: Trupti Martin Butch SOLORZANO [employer] FLUOROSCOPY PROCEDURES Elizabeth l Result * Colonoscopy (05/26/2024) Colonoscopy no interpretation , abstracted Anatomical Region Laterality Modality Other Historical Provider HEALTH MAINTENANCE Final Result from Last 3 Months or Most Recently Relevant to Health Maintenance Insurance [facility] Care Teams Kier Operator Relationship Specialty Start Date End Date Child, RASHAD Vieyra [address] [place] [address] PCP - General Physician Nailer Hand 09/19/24
--- OUTSIDE RECORDS SUMMARY | 2025-05-28 16:46 | XMS_ITS | Encounter Summary ---
Author Organization [facility] Address [address] [place] [address] Care Team Providers Care Oil Well Services Supervisor Name Role Phone Child, Jarrell SOLORZANO Primary Care Provider [phone] Encounter Details Date Type Department Care Team ([facility] Contact Info) Description 05/27/2025 Results Follow-Up Gastroenterology - [place] 175 [facility] [address] [phone] Pola Rdz MD 175 [facility] 200 [place] [address] Social History Tobacco Use Types Packs/Day Years Used Date Smoking Tobacco: Never Smokeless Tobacco: Never Alcohol Use Standard Drinks/Week Comments Not Currently [...] PM EDT documented as of this encounter Ordered Prescriptions Prescription Sig Dispense Quantity Refills Last Filled Start Date End Date tetracycline (ACHROMYCIN,SUMYCIN ) 500 mg capsule Take 1 capsule (500 mg total) by mouth 4 (four) times a day for 14 days. 56 capsule 05/27/2025 metroNIDAZOLE (FLAGYL) 250 mg tablet Take 1 tablet (250 mg total) by mouth 4 (four) times a day for 14 days. Do not use mouth wash or consume alcohol until 48 hours after last dose 56 tablet 05/27/2025 bismuth subsalicylate 525 mg/15 mL suspension Take 15 mL by mouth 4 (four) times a day. 840 mL 05/27/2025 documented in this encounter Progress Notes * Pola Rdz MD - 05/27/2025 4:40 PM EDT The lesion which was removed during the endoscopy was benign, and was a fat tumor. Yo did have changes in your stomach called intestinal metaplasia that can happen as a result of H. pylori infection. Therefore, I will send antibiotics to your pharmacy. Please take this for 2 weeks.We will repeat your EGD in 2 years to confirm the stabilization of these findings. documented in this encounter Plan of Treatment Upcoming Encounters Date Type Department Care Team (Late st Contact Info) Description 10/12/2025 3:00 PM EST Office Visit Gastroenterology - [place] [address] [place] [phone] Charlotte Crowe NP 175 [facility] 200 [place] [address] documented as of this encounter Visit Diagnoses Not on filedocumented in this encounter Care Teams Oil Well Services Supervisor Relationship Specialty Start Date End Date Child, JarrellRASHAD [address] [place] [address] PCP - General Physician Aircraft Magneto Mechanic 09/19/24 documented as of this encounter
== END 2025-05-28 14:13 | disposition home or self-care (01) ==
LOC: HO.US 14:12
PROVIDERS: PCP Internal Medicine; Visit Provider Nurse Practitioner Family
DX: N43.3 Hydrocele, unspecified (principal); R39.12 Poor urinary stream; R39.14 Feeling of incomplete bladder emptying
CPT/HCPCS: 76770; 76870

== ENCOUNTER → 2025-05-28 14:16 | Outpatient (BNV) | payer OTHER, SELFPAY | PROVIDERS: PCP Internal Medicine; Visit Provider Radiology Diagnostic Radiology | DX: R39.12 Poor urinary stream (principal); N43.3 Hydrocele, unspecified | CPT/HCPCS: 76770; 76870 ==

== ENCOUNTER 2025-06-26 14:11 | Outpatient (AMB) | payer OTHER, SELFPAY ==
--- NOTE | 2025-06-26 14:37 | A.OFFVIS_ITS ---
Intake Visit Reasons: weak urinary stream, hydrocele Intake Note: Patient is present for WEAK URINARY STREAM, HYDROCELE Urology Medication:TAMSULOSIN, FINASTERIDE Antibiotic Allergy:NONE Blood Thinner:ASPIRIN Meeting/Event Planner Required: Yes Meeting/Event Planner Services: Meeting/Event Planner Present Meeting/Event Planner Name: [id number] Allergies No Known Allergies Allergy (Verified 06/26/25 15:19) Medication List - Last Reconciled 06/26/25 by MONET Royal- atenolol-chlorthalidone 50-25 mg 1 tab PO DAILY atorvastatin 40 mg PO DAILY captopril 25 mg PO BID finasteride 5 mg PO DAILY ketotifen fumarate 0.025%(0.035%) 1 drp ophthalmic (eye) BID loratadine 10 mg PO DAILY PRN pantoprazole 40 mg PO QAM rosuvastatin 40 mg PO BEDTIME tamsulosin 0.4 mg PO DAILY HPI Comments Details: Caitlin is a 59-year-old [place] Verdean-speaking male patient of Dr. Austin who was accompanied by his significant other at today's office visit. He has a past medical history of hypertension, GERD, hypercholesteremia, BPH, and headaches. He presents to the office today For a follow up. Of note, patient was seen approximately a months ago as a new patient for left-sided hydrocele as well as ongoing lower urinary tract symptoms he had been experiencing at which time discussion regarding further treatment options of hydroceles was discussed. Most recent retroperitoneal ultrasound in scrotal imaging results were reviewed with the patient and his today. 06/16 normal kidneys and urinary bladder. Prostate volume of a proximally 24 mL. Postvoid residual 62 mL. Most recent scrotal imaging 06/16 normal testicles and epididymitis small right and moderate left hydroceles present. He discusses his longstanding history of hydroceles and undergoing a hydrocelectomy in [facility] over 10 years ago. He reports compliance with finasteride and Flomax and does feel these medications have been helpful in treatment of his lower urinary tract symptoms. He reports previously had been experiencing feeling of incomplete bladder emptying and weak urinary stream. In assessment of the patient today small to moderate size left-sided hydrocele noted as well as epididymal head cyst. Otherwise no open areas, lesions, and or drainage noted within the area. GIOVANNA smooth and no suspicious nodules palpated. We discussed further treatment options of hydrocele and risks and benefits of these interventions. We also discussed importance of obtaining PSA as discussed during last office visit. He otherwise denies incontinence, nocturia, hematuria, dysuria, foul smelling urine, flank pain, fever, and or chills. In office urinalysis results reviewed with the patient today. He otherwise offers no other issues or concerns at this time. [facility] Medical History Tension type headache Benign prostatic hyperplasia Hypercholesterolemia GERD (gastroesophageal reflux disease) Essential hypertension Review of Systems Const All systems reviewed & are unremarkable except as noted in HPI and below Physical Exam Const General: cooperative, comfortable, no acute distress, well developed, alert and awake Orientation/consciousness: patient oriented x3 Limitations: language barrier HEENT Head: Yes normal to inspection, Yes normocephalic and Yes atraumatic Ears: hearing grossly normal bilaterally Eyes General: appearance normal, both eyes and all related structures Neck Neck: Yes normal visual inspection and Yes trachea midline Chest Chest palpation & inspection: normal inspection of the chest Resp Effort & Inspection: normal respiratory effort and able to speak in complete sentences Cardio Rate: regular rate GI Inspection: Yes normal to inspection Other: as per HPI General: Yes no CVA tenderness Back/Spine/Pelvis Back: no CVA tenderness Skin General skin exam: no rashes or lesions noted Neuro General: patient oriented x3 Extrem General: Yes normal to inspection Psych Appearance: grossly normal and well kempt Mental Status: mental status grossly normal Speech and movement: Normal speech and movement present and Clear speech present Affect: normal affect Attitude: cooperative Thought process: Normal thought process present Thought content: Normal thought content present Insight: Fair insight present (Psych) Judgement: Fair judgement present (Psych) Results AMB Urinalysis, Automated UA Leukoctes 0 Roseline/uL Last Edit by ILSA Ibarra on 06/26/25 15:33 UA Nitrite Negative Last Edit by ILSA Ibarra on 06/26/25 15:33 UA Urobilinogen 0.2 mg/dL Last Edit by ILSA Ibarra on 06/26/25 15:3 3 UA Protein 0 mg/dL Last Edit by ILSA Ibarra on 06/26/25 15:33 UA pH 6.5 Last Edit by ILAS Ibarra on 06/26/25 15:33 UA Blood 0 Giles/uL Last Edit by Michelle Beckford [facility] on 06/26/25 15:33 UA Specific [place] 1.015 Last Edit by ILSA Ibarra on 06/26/25 15: 33 UA Ketone Negative Last Edit by Michelle Beckford [facility] on 06/26/25 15:33 UA Bilirubin 0 mg/dL Last Edit by Michelle Beckford [facility] on 06/26/25 15:33 UA Glucose 0 mg/dL Last Edit by Michelle Beckford [facility] on 06/26/25 15:33 Results Reviewed Results Reviewed: Laboratory Last Values Urine pH (Auto) 6.5 06/26/25 15:33 Specific [place] (Auto) 1.015 06/26/25 15:33 Urine Protein (Auto) 0 mg/dL 06/26/25 15:33 Glucose (UA)(Auto) 0 mg/dL 06/26/25 15:33 Urine Ketones (Auto) Negative 06/26/25 15:33 Urine Blood (Auto) 0 Giles/uL 06/26/25 15:33 Urine Nitrite (Auto) Negative 06/26/25 15:33 Urine Bilirubin (Auto) 0 mg/dL 06/26/25 15:33 Urine Urobilinogen (Auto) 0.2 mg/dL 06/26/25 15:33 Leukocyte Esterase (Auto) 0 Roseline/uL 06/26/25 15:33 Date of Service: 05/28/25 Procedure(s): US retroperitoneal comp FINDINGS: RIGHT KIDNEY: 12.3 x 5.0 x 5.7 cm (SAG x AP x TRV). The kidney is normal in size, contour, and echogenicity. Renal cortical thickness is normal. No calculi or focal parenchymal lesions. No hydronephrosis. LEFT KIDNEY: 11.7 x 6.2 x 3.9 cm (SAG x AP x TRV). The kidney is normal in size, contour, and echogenicity. Renal cortical thickness is normal. No calculi or focal parenchymal lesions. No hydronephrosis. BLADDER: Well distended and normal. Bilateral ureteral jets are demonstrated. Prevoid bladder volume is 430 mL. Postvoid bladder volume is 62 mL. Prostate volume is estimated at 24 mL. US/US retroperitoneal comp IMPRESSION: 1. Normal kidneys and urinary bladder. 2. Postvoid residual of 62 mL. Date of Service: 05/28/25 Procedure(s): US scrotum FINDINGS: RIGHT: Right testicle measures 5.4 x 2.6 x 4.1 cm, volume 31 mL. No focal testicular parenchymal lesions are visualized. Spectral Doppler analysis of the arterial and venous flow is normal in the right testis. Right epididymal head is normal in size. There is a small right hydrocele. There is no varicocele. Right epididymal Doppler flow is normal. LEFT: Left testicle measures 5.0 x 2.3 x 3.9 cm, volume 24 mL. No focal testicular parenchymal lesions are visualized. Spectral Doppler analysis of the arterial and venous flow is normal in the left testis. Left epididymal head is normal in size. There is a moderate sized left hydrocele. There is no varicocele. Left epididymal Doppler flow is normal. IMPRESSION: 1. Normal testicles and epididymides. 2. Small right and moderate left hydroceles. Assessment & Plan Assessment & Plan (1) Weak urinary stream: Code(s): R39.12 - Poor urinary stream Category: Medical (2) Feeling of incomplete bladder emptying: Code(s): R39.14 - Feeling of incomplete bladder emptying Category: Medical (3) Hydrocele: Code(s): N43.3 - Hydrocele, unspecified Category: Medical Plan: Risks, benefits and alternatives to therapy were discussed. These include but are not limited to infection, bleeding, damage to local organs and tissues, need for further interventions. ? Anesthetic risks regarding cardiac arrhythmia, blood clots, and potential mortality were discussed. The patient understands the typical recovery time and the outpatient nature of the procedure. After consideration of these risks the patient gives full informed consent and they wish to move ahead with the procedure. Plan In office urinalysis results with the patient today; as noted above. Will see recent retroperitoneal ultrasound results reviewed with the patient today; as noted above. Most recent scrotal imaging results reviewed with the patient today; as noted above. Continue Flomax and finasteride as discussed and prescribed. We did discussed further treatment options of hydroceles and risks of these interventions. All questions were answered. He reports be happy with current voiding parameters. We discussed obtaining PSA as ordered. Will schedule for left-sided hydrocelectomy as discussed. Follow-up per doctor's orders; or sooner with any issues, concerns, and or questions. Orders: Orders AMB Urinalysis Automated Today Z13.9 - Encounter for screening, unspecified Prostate Specific Antigen Today R39.12 - Poor urinary stream, R39.14 - Feeling of incomplete bladder emptying Patient Instructions: The patient had an opportunity to ask questions regarding the treatment plan. All questions were answered. Physical exam, labs, and imaging were discussed and reviewed in detail. As well as risks, benefits, and discussion of treatment choices. No major barriers to understanding were identified. The patient expressed understanding and agreement with the above treatment plan. The patient was made aware they should contact our office by phone for worsening of their current condition, the appearance of new symptoms, or with any questions or concerns. Compliance is encouraged with any medications and follow up testing that is ordered. It is a privilege to be allowed the opportunity to participate in? your urological care.? Again, if you have any questions or concerns If you have any questions or concerns please do not hesitate to contact me. The office is [phone]. This note is constructed using voice recognition software. While every effort has been made to ensure accuracy yoghurt maker errors may have been included. Yours sincerely, BRENDA Royal Coding Level of Care Code Est Pt Level 4 (06529) Complex EM visit Add On G2211 Diagnoses Weak urinary stream R39.12 Feeling of incomplete bladder emptying R39.14 Hydrocele N43.3
--- OUTSIDE RECORDS SUMMARY | 2025-06-26 17:12 | XMS_ITS | Encounter Summary ---
Author Organization [facility] Address [address] [place] [address] Care Team Providers Care Claim Representative Name Role Phone Child, Jarrell SOLORZANO Primary Care Provider [phone] Encounter Details Date Type Department Care Team ([facility] Contact Info) Description 05/27/2025 Results Follow-Up Gastroenterology - [place] 175 [facility] 175 [facility] 200 [place] [phone] Pola Rdz MD 299 [facility] [address] [place] [address] Social History Tobacco Use Types Packs/Day Years [...] Refills Last Filled Start Date End Date bismuth subsalicylate 525 mg/15 mL suspension Take 15 mL by mouth 4 (four) times a day. 840 mL 05/27/2025 tetracycline (ACHROMYCIN,SUMYCIN ) 500 mg capsule Take 1 capsule (500 mg total) by mouth 4 (four) times a day for 14 days. 56 capsule 05/27/2025 metroNIDAZOLE (FLAGYL) 250 mg tablet Take 1 tablet (250 mg total) by mouth 4 (four) times a day for 14 days. Do not use mouth wash or consume alcohol until 48 hours after last dose 56 tablet 05/27/2025 5 documented in this encounter Progress Notes * [...] 3:00 PM EST Office Visit Gastroenterology - 299 [place] 299 [facility] [address] [place] [phone] Charlotte Crowe NP [address] [address] documented as of this encounter Visit Diagnoses Not on filedocumented in this encounter Care Teams Claim Representative Relationship Specialty Start Date End Date Child, Jarrell RASHAD [address] [place] [address] PCP - General Physician Product Designer 09/19/24 documented as of this encounter
--- OUTSIDE RECORDS SUMMARY | 2025-06-26 17:12 | XMS_ITS | Clinical Summary ---
Author Organization [facility] Address [address] [place] [address] Care Team Providers Care Production Trainer Name Role Phone Camilo Austin MD Primary Care Provider [phone] Source Comments PLEASE NOTE, if this patient [...] Screening 03/24/2025 03/24/2024 Lipid Screening 03/24/2025 03/24/2024, 08/0 09/2023, 11/13/2022 [id number] (1 - season) 2025 Imm-Influenza (#1) 2025 Tobacco Screening 09/15/2025 09/15/2024 Diabetes Screening 11/13/2025 11/13/2022, 11/13/2022 Colonoscopy 05/26/2034 05/26/2024, 05/26/2024 Colorectal Cancer Screening 05/26/2034 HIV Screening Completed 11/13/2022 Hepatitis C Screening Completed 11/13/2022 Procedures Procedure Name Priority Date/Time Associated Diagnosis Comments IMAGING SCANNED DOCUMENT 05/28/2025 3:00 AM EDT IMAGING SCANNED DOCUMENT 05/28/2025 3:00 AM EDT UPPER GI ENDOSCOPY (EGD) SCANNED DOCUMENT 04/26/2025 [...] Recently Relevant to Health Maintenance Results * IMAGING SCANNED DOCUMENT (05/28/2025 3:00 AM EDT) Only the most recent of3 resultswithin the time period is included. 05/28/2025 3:00 AM EDT Camilo Austin MD SCAN IMAGING Final Result * UPPER GI ENDOSCOPY (EGD) SCANNED DOCUMENT (04/26/2025 3:00 AM EDT) 04/26/2025 3:00 AM EDT Jarrell Valentine PA-C SCAN PROCEDURES Final Result * HISTORIC COLONOSCOPY (05/26/2024 3:00 AM EDT) 05/26/2024 3:00 AM EDT us Camilo Austin MD PROCEDURES Final Result * (ABNORMAL) LIPIDS W RFLX TO DIRECT LDL (03/24/2024 3:41 PM EDT) CHOLESTEROL, TOTAL 244(H) <200 mg/dL [facility] HDL CHOLESTEROL 48 > OR = 40 mg/dL [facility] TRIGLYCERIDES 575(H) <150 mg/dL [facility] Comment: If a non-fasting specimen was collected, consider repeat triglyceride testing on a fasting specimen if clinically indicated. Nikhil et al. J. of Clin. Lipidol. 2015;9:129-169. There is increased risk of pancreatitis when the triglyceride concentration is very high (> or = 500 mg/dL, especially if > or = 1000 mg/dL). Nikhil et al. J. of Clin. Lipidol. 2015;9:129-169. LDL-CHOLESTEROL See Note [facility] [employer] Comment: LDL cholesterol not calculated. Triglyceride levels greater than 400 mg/dL invalidate calculated LDL results. Reference range: <100 Desirable range <100 mg/dL for primary prevention; <70 mg/dL for patients with CHD or diabetic patients with > or = 2 CHD risk factors. LDL-C is now calculated using the Elliott calculation, which is a validated novel method providing better accuracy than the Friedewald equation in the estimation of LDL-C. Peter SS et al. BRENDEN. 2013;310(19): 9299-9947 (http://education.Visual.ly/faq/UVB405) CHOL/HDLC RATIO 5.1(H) <5.0 (calc) [facility] NON-HDL CHOLESTEROL 196(H) <130 mg/dL (calc) [facility] Comment: For patients with diabetes plus 1 major ASCVD risk factor, treating to a non-HDL-C goal of <100 mg/dL (LDL-C of <70 mg/dL) is considered a therapeutic option. Blood Blood / Unknown 03/24/2024 3 :41 PM EDT 03/24/2024 3:42 PM EDT Narrative [email or web address] - 03/27/2024 10:56 AM EDT FASTING:NO us Camilo Austin MD LAB - BLOOD DRAW Final Resul t [email or web address] [address] [address], [employer] [address] [place] [address] * HEPATITIS C AB W/RFLX HCV RNA, QT, RT PCR (11/13/2022 11:13 AM EDT) HEPATITIS C ANTIBODY NON-REACT MOLLY NON-REACT MOLLY [facility] SIGNAL TO CUT-OFF 0.05 <1.00 [employer] Comment: HCV antibody was non-reactive. There is no laboratory evidence of HCV infection. In most cases, no further action is required. However, if recent HCV exposure is suspected, a test for HCV RNA (test code 20932) is suggested. For additional information please refer to http://MyUS.com.DecisionView/faq/MPB18t4 (This link is being provided for informational/ educational purposes only.) Blood Blood / Unknown 11/13/2022 1 1:13 AM EDT 11/13/2022 11:14 AM EDT Narrative [email or web address] - 11/18/2022 2:12 PM EDT FASTING:NO Brissa Ford NP LAB - BLOOD DRAW Edited Result - Final [email or web address] [address] [address], [employer] [address] [place] [phone] * HIV 1/2 AG & AB W/RFLX (4TH GEN) (11/13/2022 11:13 AM EDT) Pathologist [facility] HIV AG/AB, 4TH GEN NON-REAC TIVE NON-REAC TIVE [facility] Comment: HIV-1 antigen and HIV-1/HIV-2 antibodies were [...] purpose. For additional information please refer to http://MyUS.com.DecisionView/faq/NVX157 (This link is being provided for informational/ educational purposes only.) The performance of this assay has not been clinically validated in patients less than 2 years old. Blood Blood / Unknown 11/13/2022 1 1:13 AM EDT 11/13/2022 11:14 AM EDT Narrative [facility] - 11/18/2022 2:12 PM EDT FASTING:NO Brissa Ford NP LAB - BLOOD DRAW Final Result [facility] [address] [address], [facility] [address] [place] [address] * (ABNORMAL) CMP (11/13/2022 11:13 AM EDT) GLUCOSE 97 65 - 139 mg/dL [facility] Comment: Non-fasting reference interval UREA NITROGEN (BUN) 19 7 - 25 mg/dL [facility] CREATININE (blood) 0.91 0.70 - 1.30 mg/dL [facility] EGFR 97 > OR = 60 mL/min/1 .73m2 [facility] Comment: The eGFR is based on the CKD-EPI 2020 equation. To calculate the new eGFR from a previous Creatinine or Cystatin C result, go to https://www.kidney.org/professionals/ kdoqi/gfr%5Fcalculator BUN/CREATININE RATIO NOT APPLICABLE 6 - 22 [facility] SODIUM 139 135 - 146 mmol/L [facility] POTASSIUM 4.3 3.5 - 5.3 mmol/L [facility] CHLORIDE 104 98 - 110 mmol/L [facility] CARBON DIOXIDE 28 20 - 32 mmol/L [facility] CALCIUM 11.6(H) 8.6 - 10.3 mg/dL [facility] PROTEIN, TOTAL 7.2 6.1 - 8.1 g/dL [facility] ALBUMIN 4.8 3.6 - 5.1 g/dL [facility] GLOBULIN 2.4 1.9 - 3.7 g/dL (calc) [facility] ALBUMIN/GLOBUL IN RATIO 2.0 1.0 - 2.5 (calc) [facility] BILIRUBIN, TOTAL 0.9 0.2 - 1.2 mg/dL [facility] ALKALINE PHOSPHATASE 76 35 - 144 U/L [facility] AST 22 10 - 35 U/L [facility] ALT 33 9 - 46 U/L [facility] Blood Blood / Unknown 11/13/2022 1 1:13 AM EDT 11/13/2022 11:14 AM EDT Narrative [facility] [employer] [facility] - 11/18/2022 2:12 PM EDT FASTING:NO Brissa Ford NP LAB - BLOOD DRAW Edited Result - Final [facility] [employer] [address] [address], [employer] [address] [place] [address] from Last 3 Months or Most Recently Relevant to Health Maintenance Insurance [id number] Care Teams Production Trainer Relationship Specialty Start Date End Date Camilo Austin MD [address] [place] [address] PCP - General Internal Medicine 05/03/23
--- OUTSIDE RECORDS SUMMARY | 2025-06-26 17:12 | XMS_ITS | Clinical Summary ---
Author Organization [facility] Address [address] [place] [address] Care Team Providers Care Inspector [employer] Name Role Phone ChildJarrell Primary Care Provider [phone] Allergies No known active allergies Medications [...] mg tablet 1 (one) time each day. 03/28/20 24 Active acetaminophen (TYLENOL) 500 mg tablet Take 1 tablet (500 mg total) by mouth every 6 hours as needed. 03/24/20 24 Active atorvastatin (LIPITOR) 40 mg tablet Take 1 tablet (40 mg total) by mouth daily. 06/28/20 24 Active pantoprazole (PROTONIX) 40 mg EC tablet Take 1 tablet (40 mg total) by mouth 2 (two) times a day. Take on empty stomach, wait 30 mins and then eat to activate the medication- before breakfast and supper 60 each 11 10/13/19 25 Active famotidine (Pepcid) 20 mg tablet Take 1 tablet (20 mg total) by mouth 2 (two) times a day if needed for heartburn. Take as needed especially at bedtime 60 each 11 10/13/19 25 026 Active Additional Information Patient not taking.Reported on 04/26/2025 valsartan (DIOVAN) 160 mg tablet Take 1 tablet (160 mg total) by mouth 1 (one) time each day. Takes 1/2 pill / day . Pt unsure of dose Active bismuth subsalicylate 525 mg/15 mL suspension Take 15 mL by mouth 4 (four) times a day. 840 mL 05/27/20 Active metroNIDAZOLE (FLAGYL) 250 mg tablet Take 1 tablet (250 mg total) by mouth 4 (four) times a day for 14 days. Do not use mouth wash or consume alcohol until 48 hours after last dose 56 tablet 05/27/20 025 tetracycline (ACHROMYCIN,SUMYC IN) 500 mg capsule Take 1 capsule (500 mg total) by mouth 4 (four) times a day for 14 days. 56 capsule 05/27/20 025 Encounters Date Type Department Care Team Description 05/27/2025 Results Follow-Up Gastroenterology - [place] [facility] [address] [phone] Pola Rdz MD 04/26/2025 2:04 PM EDT Anesthesia Event [facility] Endoscopy [address] [place] [phone] Nestor Granger MD 04/26/2025 12:02 PM EDT - 04/26/2025 11:59 PM EDT Hospital Encounter [facility] Endoscopy [address] [place] [phone] Pola Rdz MD Steele, Matthew G, HOME ENERGY CONSULTANT SUPERVISOR Dyspepsia; Epigastric pain Discharge Disposition: Home or Self Care 04/25/2025 Telephone Gastroenterology - [place] [facility] [address] [phone] Pola Rdz MD 04/03/2025 9:58 AM EDT - 04/03/2025 11:59 PM EDT Hospital Encounter [facility] Xray [address] [place] [address] Dyspepsia Discharge Disposition: Home or [...] Office Visit Gastroenterology - [address] [facility] [address] [place] [phone] Charlotte Crowe NP [address] [address] Health Maintenance Due Date Last Done Comments [...] Maintenance Results * EGD Anesthesia - MAC; [facility] ENDOSCOPY (04/26/2025 2:25 PM EDT) Anatomical Region Laterality Modality Endoscopy 04/26/2025 2:04 PM EDT Impressions 04/26/2025 2:28 PM EDT - Normal examined duodenum. - Gastritis. Biopsied. 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 Complete removal was accomplished. Clips (MR conditional) were placed. Clip grinding room supervisor: MiniTime. - Small hiatal hernia. - LA Grade [...] PO daily. Narrative 04/26/2025 2:28 PM EDT [facility] GI Patient Name: Caitlin Ortiz Procedure Date: [...] verified by the physician, the nurse, the front sight attacher and the rf technician in the pre-procedure area in the [...] clips were successfully placed (MR conditional). Clip grinding room supervisor: MiniTime. There was no bleeding at the end [...] the esophagus. Procedure Code(s): --- Professional --- 41677, Esophagogastroduodenoscopy, flexible, transoral; with endoscopic mucosal resection 11921, 59, Esophagogastroduodenoscopy, flexible, transoral; with biopsy, single or multiple Diagnosis Code(s): --- Professional --- K29.70, Gastritis, unspecified, without bleeding K44.9, Diaphragmatic hernia without obstruction or gangrene K21.00, Gastro-esophageal reflux disease with esophagitis, without bleeding R19.8, Other specified symptoms and signs involving the digestive system and abdomen CPT copyright 2020 [employer]. All rights reserved. The codes documented in this report are preliminary and upon physician coder review may be revised to meet current compliance requirements. Pola Rdz MD 04/26/2025 2:28:29 PM This report has been signed electronically.Pola Rdz MD Number of Addenda: 0 Note Initiated On: 04/26/2025 2:04 PM Scope In: Scope Out: Endoscopy Department at [facility] - [address] [place] [phone] Procedure Note Pola Rdz MD - 04/26/2025 [facility] GI Patient Name: Caitlin Ortiz Procedure Date: [...] the physician, the nurse, theanesthetist and the rf technician in the pre-procedure area in the [...] twohemostatic clips were successfully placed (MR conditional).Clip grinding room supervisor: MiniTime. There was nobleeding at the end of [...] of theesophagus. Procedure Code(s): --- Professional --- 95312, Esophagogastroduodenoscopy, flexible, transoral; with endoscopic mucosal resection 61944, 59, Esophagogastroduodenoscopy, flexible, transoral; with biopsy, single or multiple Diagnosis Code(s): --- Professional --- K29.70, Gastritis, unspecified, without bleeding K44.9, Diaphragmatic hernia without obstruction or gangrene K21.00, Gastro-esophageal reflux disease with esophagitis, without bleeding R19.8, Other specified symptoms and signs involving the digestive system and abdomen CPT copyright 2020 [employer]. All rights reserved. The codes documented in this report are preliminary and upon physician coder reviewmay be revised to meet current compliance requirements. Pola Rdz MD 04/26/2025 2:28:29 PM This report has been signed electronically.Pola Rdz MD Number of Addenda: 0 Note Initiated On: 04/26/2025 2:04 PM Scope In: Scope Out: Endoscopy Department at [facility] - [address] [place] [phone] IMPRESSION: - Normal examined duodenum. - Gastritis. Biopsied. 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 Complete removal was accomplished. Clips (MR conditional) were placed. Clip grinding room supervisor: MiniTime. - Small hiatal hernia. - LA Grade [...] Immunohistochemistry: Helicobacter pylori: negative. 12:44 PM EDT [facility] Addendum electronically signed by Maeve Loew MD on 04/30/2025 at 12:44 PM Final [...] on H&E stained slide. 12:44 PM EDT [facility] Gross Description A. Stomach, biopsies: [...] on one slide. HUAN 12:44 PM EDT [facility] Disclaimer NOTE: The immunohistochemical tests and in situ hybridization tests were developed and their performance characteristics were determined by [facility]. They have not been cleared [...] fixed and paraffin embedded. 12:44 PM EDT [facility] Tissue Stomach structure / Unknown 04/26/2025 2:10 PM EDT 04/26/2025 3:18 PM EDT Tissue specimen (specimen) Stomach structure / Unknown 04/26/2025 2:17 PM EDT 04/26/2025 3:18 PM EDT us Pola Rdz MD LAB PATHOLOGY ORDERABLES Ed ited Result - Final [facility] [address] [place] [address], * XR UGI w Air Contrast (04/03/2025 [...] Signed Date: 04/03/2025 15:31 ET Workstation ID: [id number] Transcribed By: Self Edit Transcribed Date: 04/03/2025 14:12 ET Resident/PA/ASSOCIATE FINANCIAL PLANNER: Trupti Martin Narrative 04/03/2025 3:31 PM EDT FINDINGS: Double contrast UGI performed. COMPARISON: None. HISTORY: Patient is a 60-year-old male with history of dyspepsia, generalized abdominal discomfort. SENIOR MANUFACTURING TEST ENGINEER radiographs: Pilot Can Router AP radiograph of the abdomen obtained. Bowel [...] male with history of dyspepsia,generalized abdominal discomfort. SENIOR MANUFACTURING TEST ENGINEER radiographs: Pilot Can Router AP radiograph of the abdomen obtained. Bowel [...] Signed Date: 04/03/2025 15:31 ET Workstation ID: [id number] Transcribed By: Self Edit Transcribed Date: 04/03/2025 14:12 ET Resident/PA/ASSOCIATE FINANCIAL PLANNER: Trupti Martin Butch [facility] IMG FLUOROSCOPY PROCEDURES Elizabeth l Result * Colonoscopy (05/26/2024) Colonoscopy no interpretation , abstracted Anatomical Region Laterality Modality Other Historical Provider HEALTH MAINTENANCE Final Result from Last 3 Months or Most Recently Relevant to Health Maintenance Insurance [facility] [place] [address] Care Teams Inspector Production [employer] Relationship Specialty Start Date End Date Child, RASHAD Vieyra [address] [place] [address] PCP - General Physician Observer Helper 09/19/24
== END 2025-06-26 15:28 | disposition home or self-care (01) ==
LOC: HO.HUSH 14:11
PROVIDERS: PCP Internal Medicine; Visit Provider Nurse Practitioner Family
DX: R39.12 Poor urinary stream (principal); R39.14 Feeling of incomplete bladder emptying; N43.3 Hydrocele, unspecified; Z13.9 Encounter for screening, unspecified
CPT/HCPCS: 99214

== ENCOUNTER → 2025-06-26 14:11 | Outpatient (BNVA) | payer OTHER, SELFPAY | PROVIDERS: PCP Internal Medicine; Visit Provider Nurse Practitioner Family | DX: R39.14 Feeling of incomplete bladder emptying (principal); R39.12 Poor urinary stream; N43.3 Hydrocele, unspecified | CPT/HCPCS: 81003; 99212 ==